=== PATIENT | female | born 1985 | race Two or more races ===

== ENCOUNTER 2017-03-17 21:42 | Emergency (ER) | payer OTHER ==
[~2017-03-17] VITALS: Ht 160 cm; Wt 78.5 kg
[2017-03-17 22:02] VITALS: BP 133/85
[2017-03-17 22:48] LABS: Urine Bilirubin Negative (Negative); Urine Blood 2+ /uL (Negative); Urine Color Yellow (Yellow); Urine Glucose 4+ mg/dL (Normal); Urine Ketone Negative (Negative); Urine Nitrite Negative (Negative); Urine RBC 6 /hpf (0 - 4); Urine Squamous Epithelial Cell FEW /hpf (<5); Urine Urobilinogen Normal (Negative); Urine pH 6.5 (5.0-8.0)
[2017-03-17 22:50] LABS: Basophils # (auto) 0 uL; Basophils % (auto) 0.2 % (0.0-2.0); CONDITION Y; Eosinophils # (auto) 0.1 uL; Eosinophils % (auto) 0.4 % (0.0-7.0); Hematocrit 45.5 % (36.0-46.0); Hemoglobin 15.6 g/dL (12.2-16.2); Lymphocytes # (auto) 2.3 uL; Lymphocytes % (auto) 12.4 % (10.0-50.0); Mean Corpuscular Hemoglobin 31.1 pg (28.0-32.0); Mean Corpuscular Hgb Conc. 34.4 g/dL (32.0-36.0); Mean Corpuscular Volume 90.5 fL (80.0-100.0); Mean Platelet Volume 9.7 fL (7.4-10.4); Monocytes # (auto) 1.3 uL; Monocytes % (auto) 6.9 % (0.0-12.0); Neutrophils # (auto) 14.8 uL; Neutrophils % (auto) 80.1 % (37.0-80.0); Platelet Count (auto) 320 10^3/uL (140-450); Red Cell Distribution Width 11.8 % (11.6-16.0); White Blood Cell 18.5 10^3/uL (4.4-10.8)
[2017-03-17 23:06] LABS: Albumin 2.8 g/dL (3.4-5.0); BUN/Creatinine Ratio 9.7; Calcium 8.4 mg/dL (8.5-10.1)
[2017-03-17 23:08] LABS: Bilirubin, Total 0.5 mg/dL (0.2-1.0); Total Protein 7.6 g/dL (6.4-8.2)
== END 2017-03-18 00:15 | disposition left against medical advice (07) ==
LOC: ER 21:44
DX: H92.01 Otalgia, right ear (principal); Z53.21 Procedure and treatment not carried out due to patient leaving prior to being seen by health care provider
CPT/HCPCS: 36415; 80053; 81001; 82010; 82962; 84702; 85025

== ENCOUNTER → 2018-01-07 | Emergency (ER) | payer OTHER | END | disposition left against medical advice (07) | LOC: ER 19:29 | DX: S01.81XA Laceration without foreign body of other part of head, initial encounter (principal); X58.XXXA Exposure to other specified factors, initial encounter; Y93.89 Activity, other specified; Y92.89 Other specified places as the place of occurrence of the external cause; Y99.8 Other external cause status; Z53.21 Procedure and treatment not carried out due to patient leaving prior to being seen by health care provider ==

== ENCOUNTER 2022-04-02 13:57 | Emergency (ER) | payer MEDICAID, OTHER ==
[~2022-04-02] VITALS: Ht 157.5 cm; Wt 78.0 kg
[2022-04-02] MEDS ORDERED: KETOROLAC TROMETH 60MG/2ML VIAL IM ONE (16:00)
[2022-04-02 16:20] VITALS: BP 138/94
[2022-04-02] MEDS ORDERED: METH750T22 PO (16:24)
[2022-04-02] MEDS ORDERED: IBUP800T27 PO (16:24)
== END 2022-04-02 16:32 | disposition home or self-care (01) ==
LOC: ER 13:57
DX: S16.1XXA Strain of muscle, fascia and tendon at neck level, initial encounter (principal); S39.012A Strain of muscle, fascia and tendon of lower back, initial encounter; F17.210 Nicotine dependence, cigarettes, uncomplicated; F12.10 Cannabis abuse, uncomplicated; V43.62XA Car passenger injured in collision with other type car in traffic accident, initial encounter; Y93.89 Activity, other specified; Y92.89 Other specified places as the place of occurrence of the external cause; Y99.8 Other external cause status
CPT/HCPCS: 72040; 72100; 96372; 99284; J1885

== ENCOUNTER 2022-07-20 13:53 | Emergency (ER) | payer MEDICAID ==
[~2022-07-20 13:53] MED LIST: IBUP800T27 PO; METH750T22 PO
== END 2022-07-20 15:12 | disposition left against medical advice (07) ==
LOC: ER 13:53
DX: R53.1 Weakness (principal); Z53.21 Procedure and treatment not carried out due to patient leaving prior to being seen by health care provider

== ENCOUNTER 2023-05-09 14:40 | Emergency (ER) | payer SELFPAY ==
[~2023-05-09] VITALS: Ht 160 cm; Wt 72.3 kg
[~2023-05-09 14:40] MED LIST changes: +IBUP-1456 PO; -IBUP800T27 PO; +METH-1182 PO; -METH750T22 PO
[2023-05-09] MEDS ORDERED: TETRACAINE HCL 0.5% OPTH(EYE) SOLN 4ML RIGHTEYE ONE (18:30)
[2023-05-09] MEDS ORDERED: FLUORESCEIN SOD OPTH TEST STRIP RIGHTEYE ONE (18:30)
[2023-05-09 18:46] VITALS: BP 136/79; PULSE 78; RESP 16; TEMP 97.6; O2SAT 99
[2023-05-09] MEDS ORDERED: ERY05OO OP (19:10)
== END 2023-05-09 19:16 | disposition home or self-care (01) ==
LOC: ER 14:40
DX: T15.91XA Foreign body on external eye, part unspecified, right eye, initial encounter (principal); E11.9 Type 2 diabetes mellitus without complications; Z90.89 Acquired absence of other organs; X58.XXXA Exposure to other specified factors, initial encounter; Y93.89 Activity, other specified; Y92.89 Other specified places as the place of occurrence of the external cause; Y99.8 Other external cause status

== ENCOUNTER → 2024-03-20 | Outpatient (CLI) | payer MEDICAID ==
[~2024-03-20] MED LIST changes: +ERY05OO OP
[2024-03-21 08:06] LABS: HSV 2 IgG Antibody <0.91 index (0.00-0.90)
[2024-03-21 12:06] LABS: RPR Quant 1:32 titer (NonRea<1:1)
== END | disposition home or self-care (01) ==
LOC: LAB 12:21
PROVIDERS: ATTEND Nurse Practitioner
DX: Z11.3 Encounter for screening for infections with a predominantly sexual mode of transmission (principal)
CPT/HCPCS: 86592; 86695; 86696; 86703

== ENCOUNTER 2024-08-25 11:52 | Emergency (ER) | payer MEDICAID, OTHER ==
[~2024-08-25] VITALS: Ht 160 cm; Wt 77.3 kg
[2024-08-25 12:07] VITALS: BP 168/95; PULSE 85; RESP 16; O2SAT 100
[2024-08-25 13:18] LABS: Basophils # (auto) 0.1 10 ^3/uL (0-0.2); Basophils % (auto) 0.5 % (0.0-2.0); Eosinophils # (auto) 0.3 10 ^3/uL (0-0.8); Eosinophils % (auto) 2.1 % (0.0-7.0); Hematocrit 42.2 % (36.0-46.0); Hemoglobin 14.1 g/dL (12.2-16.2); Lymphocytes # (auto) 2.7 10 ^3/uL (0.4-5.4); Lymphocytes % (auto) 21.1 % (10.0-50.0); Mean Corpuscular Hemoglobin 30.2 pg (28.0-32.0); Mean Corpuscular Hgb Conc. 33.4 g/dL (32.0-36.0); Mean Corpuscular Volume 90.6 fL (80.0-100.0); Monocytes # (auto) 0.6 10 ^3/uL (0-1.3); Monocytes % (auto) 4.7 % (0.0-12.0); Neutrophils # (auto) 9.3 10 ^3/uL (1.6-8.6); Neutrophils % (auto) 71.6 % (37.0-80.0); Nucleated Red Blood Cells % 0.1 %; Platelet Count (auto) 358 10^3/uL (140-450); Red Blood Cells 4.66 10^6/uL (4.0-5.20); Red Cell Distribution Width 12.2 % (11.8-14.3); White Blood Cell 12.9 10^3/uL (4.4-10.8)
[2024-08-25 13:27] LABS: Urine Bacteria FEW /hpf (None Seen); Urine Blood 3+ /uL (Negative); Urine Clarity Turbid (Clear); Urine Protein, UAD 3+ (Negative); Urine Specific Gravity 1.033 (1.001-1.035); Urine Squamous Epithelial Cell MANY /hpf (<5); Urine Urobilinogen Normal (Negative); Urine WBC 18 /hpf (0 - 5)
[2024-08-25 13:32] LABS: Alkaline Phosphatase 112 U/L (46-116); Anion Gap 6 (5-15); Carbon Dioxide 23 mmol/L (20-31); Chloride 106 mmol/L (98-107); Potassium 4.2 mmol/L (3.5-5.1)
[2024-08-25 13:33] LABS: Albumin 3.3 g/dL (3.2-4.8); Aspartate Aminotransferase 22 U/L (13-40); BUN/Creatinine Ratio 12.3 (10.0-20.0); Blood Urea Nitrogen 19 mg/dL (9-23); Total Protein 6.5 g/dL (5.7-8.2)
[2024-08-25 13:34] LABS: Sodium 135 mmol/L (136-145)
[2024-08-25 13:35] LABS: Alanine Aminotransferase < 9 U/L (7-40); Bilirubin, Total 0.2 mg/dL (0.2-1.0); Calcium 8.7 mg/dL (8.7-10.4); Glucose 241 mg/dL (74-106)
[2024-08-25 13:36] LABS: Urine Color Orange (Yellow)
--- NOTE | 2024-08-25 14:17 | ED.PDOC ---
General HPI Comments HPI: 39 Y F , presents to the ED with CC of . Patient states that, she has been experiencing vaginal spotting since last night on 08/24/23 which has persisted into a full period and cramping. Patient relays, that she has a history of irregular periods; and LMP was in \April with a positive test. Patient states, that she has not seen a OB-SHOE REPAIRER since finding out of . Patient denies body aches, fever, chills, abdominal pain or N/V/D. VITALS: T: HR: RR: O2: BP: SOCIAL HX: DENIES TOBACCO USAGE, ETOH CONSUMPTION, OR ILLICIT DRUG USE SHX: TONSILLECTOMY PMHX: DM RX:PRENATALS, METFORMIN ALLERGIES: NKA HPI: Poor Historian. REVIEW OF SYSTEMS: CONSTITUTIONAL: Denies acute: fever, diaphoresis, chills, generalized weakness. HEAD: Denies acute: headache, photophobia Eyes: Denies acute: Double vision, vision loss, eye pain, eye discharge. EARS: Denies acute: tinnitus, hearing loss, ear discharge, ear pain, THROAT: Denies acute: sore throat, swelling, difficulty swallowing , pain with swallowing, change in voice. NECK: Denies acute: neck pain, neck swelling, stiff neck. HEART: Denies acute : chest pain, palpitations, LUNGS: Denies acute: SOB, wheezing, cough, hemoptysis ABDOMEN: Denies acute: abdominal pain, Nausea, Vomiting, diarrhea, melena , hematemesis, hematochezia SKIN: Denies acute: rash, redness, lesions, itchiness. EXTREMITIES: Denies acute: calf pain, numbness, tingling, weakness, denies pain in extremity. Denies acute: Low back pain. Neuro: Denies acute: focal neurological deficit, motor or sensory focal neurological deficit, tremors, seizure like activity, confusion, dizziness, change in mental status, loss of bowel or bladder function, cauda equina like symptoms. : Denies acute: dysuria, hematuria, flank pain, increase in urinary frequency. PSYCH: Denies acute: hallucination, suicidal ideation, homicidal ideation. FEMALE: Denies acute: foul odor, unusual discharge. PHYSICAL EXAM: General: no acute distress, awake and alert. Head: normocephalic, atraumatic. Neck: supple, trachea is midline, no swelling. Throat: Normal phonation. Eyes:, no erythema, no purulent discharge, no proptosis, no icterus. Heart: regular rate, regular rhythm, no significant murmur appreciated. Lungs: no apparent respiratory distress, Able to speak in full sentences. No wheezing, no rhonchi, no crackles. No stridors Clear to auscultation bilaterally. Abdomen: non tender to palpation, non distended, soft, no guarding, no rebound, + bowel sounds. Neuro: Awake, Alert, oriented to name, self, situation, follows commands GCS=15. Speech is normal. Skin: no petechia, no purpura, no cyanosis, non-pale, not jaundice. Lower extremities: --no - Pitting edema no deformity, no focal swelling, no calf TTP. Makes eye contact. moves all four extremities. Face: no apparent facial droop. Ambulating in the ED independently. Chief Complaint: Time Seen by MD: 13:30 Primary Care Provider: UNKNOWN Reviewed notes: Nurses Notes, Medications, Allergies Allergies: Coded Allergies: NO KNOWN ALLERGIES (Unverified , 03/17/17) Home Meds Active Scripts Erythromycin (Erythromycin) 5 Mg/Gm Oin, 1 MG OP 6XD for 7 Days, #1 OIN 0 Refills Prov:KEVON ANGULO 05/09/23 Methocarbamol (Methocarbamol) 750 Mg Tab, 750 MG PO QHSP PRN, #20 TAB Prov:INES CHAWLA 04/02/22 Ibuprofen (Ibuprofen) 800 Mg Tab, 800 MG PO TID PRN, #30 TAB Prov:INES CHAWLA 04/02/22 Information Source: Patient Mode of Arrival: Ambulatory Severity: Moderate Timing: Days Duration: Since onset Prehospital treatment: None Symptoms: None History of: None Location: None Modifying factors: None associated signs and symptoms: None Was a procedure done? Was a procedure done?: No X-Ray, Labs, Meds, VS Vital Signs Date Time Temp Pulse Resp B/P (MAP) Pulse Ox O2 Delivery O2 Flow Rate FiO2 08/25/24 12:07 97.4 85 16 168/95 (119) 100 Lab Test 08/25/24 13:02 08/25/24 11:30 Range/Units White Blood Count 12.9 H 4.4-10.8 10^3/uL Red Blood Count 4.66 4.0-5.20 10^6/uL Hemoglobin 14.1 12.2-16.2 g/dL Hematocrit 42.2 36.0-46.0 % Mean Corpuscular Volume 90.6 80.0-100.0 fL Mean Corpuscular Hemoglobin 30.2 28.0-32.0 pg Mean Corpuscular Hemoglobin Concent 33.4 32.0-36.0 g/dL Red Cell Distribution Width 12.2 11.8-14.3 % Platelet Count 358 140-450 10^3/uL Mean Platelet Volume 8.0 6.9-10.8 fL Neutrophils (%) (Auto) 71.6 37.0-80.0 % Lymphocytes (%) (Auto) 21.1 10.0-50.0 % Monocytes (%) (Auto) 4.7 0.0-12.0 % Eosinophils (%) (Auto) 2.1 0.0-7.0 % Basophils (%) (Auto) 0.5 0.0-2.0 % Neutrophils # (Auto) 9.3 H 1.6-8.6 10 ^3/uL Lymphocytes # (Auto) 2.7 0.4-5.4 10 ^3/uL Monocytes # (Auto) 0.6 0-1.3 10 ^3/uL Eosinophils # (Auto) 0.3 0-0.8 10 ^3/uL Basophils # (Auto) 0.1 0-0.2 10 ^3/uL Nucleated Red Blood Cells 0.1 % Sodium Level 135 L 136-145 mmol/L Potassium Level 4.2 3.5-5.1 mmol/L Chloride Level 106 98-107 mmol/L Carbon Dioxide Level 23 20-31 mmol/L Anion Gap 6 5-15 Blood Urea Nitrogen 19 9-23 mg/dL Creatinine 1.55 H 0.550-1.02 mg/dL Glomerular Filtration Rate Calc 43 >90 mL/min BUN/Creatinine Ratio 12.3 10.0-20.0 Serum Glucose 241 H 74-106 mg/dL Calcium Level 8.7 8.7-10.4 mg/dL Total Bilirubin 0.2 0.2-1.0 mg/dL Aspartate Amino Transferase (AST) 22 13-40 U/L Alanine Aminotransferase (ALT) < 9 7-40 U/L Alkaline Phosphatase 112 46-116 U/L Total Protein 6.5 5.7-8.2 g/dL Albumin 3.3 3.2-4.8 g/dL Beta HCG, Quantitative 0.4 L 1.5-4.2 mIU/mL Urine Color [place] H Yellow Urine Clarity Turbid H Clear Urine pH 6.0 5.0-9.0 Urine Specific [place] 1.033 1.001-1.035 Urine Protein 3+ H Negative Urine Ketones Negative Negative Urine Blood 3+ H Negative /uL Urine Nitrite Negative Negative Urine Bilirubin Negative Negative Urine Urobilinogen Normal Negative mg/dL Urine Leukocyte Esterase Negative Negative /uL Urine RBC 763 0 - 4 /hpf Urine WBC 18 0 - 5 /hpf Urine Squamous Epithelial Cells Many <5 /hpf Urine Bacteria Few H None Seen /hpf Urine Granular Casts Few 0 /lpf Urine Glucose 3+ H Normal mg/dL [place] [address] DIAGNOSTIC IMAGING Diagnostic Imaging Report : [id number] Signed PATIENT: DANE AMOR ACCT: [id number] UNIT: [id number] : 1985 LOC: ER ROOM / BED: / AGE / SEX: 39 / F ADM STATUS: REG ER SERVICE [id number] ORDERING PHYSICIAN: AMANDA GERBER DO PROCEDURE(s): PELUS - PELVIC REASON: vag spotting ORDER NUMBER(s): [id number], ACCESSION NUMBER(s): [id number] EXAM: US PELVIC CLINICAL HISTORY: vag spotting TECHNIQUE: Transabdominal ultrasound of the pelvis with color Doppler flow as clinically indicated. COMPARISON: None Findings: Same-day quantitative beta-hCG is not available. Uterus measures 6.7 x 4.3 x 4.6 cm in size with relatively homogeneous echotexture and normal contours. Endometrial thickness measures 0.5 cm with smooth contour. Cervix appears grossly unremarkable. Bilateral ovaries not visualized. No free fluid in the cul-de-sac. Impression: 1. Uterus grossly unremarkable with endometrial thickness of 0.5 cm. 2. Bilateral ovaries not visualized. ATED BY: GENO TEMPLETON DO DICTATED DATE/TIME: 08/25/241431 SIGNED BY: GENO TEMPLETON SIGNED DATE/TIME: 08/25/24 143 CC: Time of 1ST Reevaluation: 14:00 Reevaluation 1ST: Unchanged Patient Education/Counseling: Diagnosis, Treatment Family Education/Counseling: No Family Present Comments 39 Y F , presents to the ED with CC of . Patient was found with the above mentioned diagnosis. the following medications were ordered: NONE the following tests were ordered: LABS, UA, US Patient ED course and VS have been stabilized. Patient has been reassessed in the ED and remained in a stable condition. Pertinent incidental findings were discussed with the patient and/or family. Patient/family voices understanding and is agreeable with plan. Patient has been observed in the ED adequate length of time to insure improvement/stability. Escalation of care considered: Consideration of escalation to observation or admission Patient was ADMITTED to the medicine team for further evaluation and treatment of their presentation. Patient was discharged. All the reports of any imaging studies that were ordered by myself were reviewed by myself. Departure 1 Departure Time of Disposition: 16:17 Impression: Primary Impression: Vaginal bleeding Additional Impression: Eloped from emergency department Disposition: 07 LEFT AWOL/ELOPED Condition: Stable Additional Instructions: Patient eloped [place] [address] Ph: [phone] DIAGNOSTIC IMAGING Diagnostic Imaging Report : [id number] Signed PATIENT: DANE AMOR ACCT: [id number] UNIT: [id number] : 1985 LOC: ER ROOM / BED: / AGE / SEX: 39 / F ADM STATUS: REG ER SERVICE 1242 ORDERING PHYSICIAN: AMANDA GERBER DO PROCEDURE(s): PELUS - PELVIC REASON: vag spotting ORDER NUMBER(s): [id number], ACCESSION NUMBER(s): [id number] EXAM: US PELVIC CLINICAL HISTORY: vag spotting TECHNIQUE: Transabdominal ultrasound of the pelvis with color Doppler flow as clinically indicated. COMPARISON: None Findings: Same-day quantitative beta-hCG is not available. Uterus measures 6.7 x 4.3 x 4.6 cm in size with relatively homogeneous echotexture and normal contours. Endometrial thickness measures 0.5 cm with smooth contour. Cervix appears grossly unremarkable. Bilateral ovaries not visualized. No free fluid in the cul-de-sac. Impression: 1. Uterus grossly unremarkable with endometrial thickness of 0.5 cm. 2. Bilateral ovaries not visualized. ATED BY: GENO TEMPLETON DO DICTATED DATE/TIME: 08/25/241431 SIGNED BY: GENO TEMPLETON DO SIGNED DATE/TIME: 08/25/24 143 CC: Stability Stability form required: No I personally scribed for AMANDA GERBER DO ([email or web address]) on 08/25/24 at 14:17. Electronically submitted by Joselin Prado ([email or web address]). I personally scribed for AMANDA GERBER DO ([email or web address]) on 08/25/24 at 14:51. Electronically submitted by Joselin Prado ([email or web address]). I personally scribed for AMANDA GERBER DO ([email or web address]) on 08/25/24 at 15:31. Electronically submitted by Joselin Prado ([email or web address]). AMANDA GERBER DO Aug 25, 2024 14:17
--- NOTE | 2024-08-25 14:34 | DVH ---
EXAM: US PELVIC CLINICAL HISTORY: vag spotting TECHNIQUE: Transabdominal ultrasound of the pelvis with color Doppler flow as clinically indicated. COMPARISON: None Findings: Same-day quantitative beta-hCG is not available. Uterus measures 6.7 x 4.3 x 4.6 cm in size with relatively homogeneous echotexture and normal contour s. Endometrial thickness measures 0.5 cm with smooth contour. Cervix appears grossly unremarkable. Bilateral ovaries not visualized. No free fluid in the cul-de-sac. Impression: 1. Uterus grossly unremarkable with endometrial thickness of 0.5 cm. 2. Bilateral ovaries not visualized.
== END 2024-08-25 15:42 | disposition left against medical advice (07) ==
LOC: ER 11:52
DX: N93.9 Abnormal uterine and vaginal bleeding, unspecified (principal); R10.2 Pelvic and perineal pain; E11.9 Type 2 diabetes mellitus without complications; Z79.899 Other long term (current) drug therapy
CPT/HCPCS: 36415; 76856; 80053; 81001; 84702; 85025; 86850; 86900; 86901